=== PATIENT | male | born 1955 | race Caucasian/White ===

== ENCOUNTER 2020-06-05 10:18 | Outpatient (AMBR) | payer MEDICARE, MEDICAID, SELFPAY ==
--- NOTE | 2020-06-05 10:52 | PTNOTE_ITS ---
PT OP Initial Eval Patient Information Visit Reasons: power mobility device Medical Diagnosis: J44.9; R26.2 Treatment Dx #1: Abnormal Gait Treatment Dx #2: General Weakness Start of Care: 06/05/20 Date of Onset: 2 months ago Initial Assessment Subjective Pt is a 64 y/o male reports of having a stroke ~ 2 months ago affecting his right side. Pt's past med hx: CHF, back surgery, COPD, DM type II, and HTN. Since Stroke Pt has been limited with ambulation, chores, self care, bed mobility, transfer, and performing ADLs. 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 Pt will like a power w/c to improve overall independence Objective BUE AROM: all motions are up to 50% BUE MMTs: grossly 3-/5 BLE AROM: all motions are up to 50% BLE MMTs: grossly 3-/5 Gait Observation: use FWW with slow jennifer and step-to pattern. Assessment Pt demonstrate decrease overall mobility and strength leading to decline function and difficulty with ADLs/ambulation. Pt will benefit from a power w/c to help improve independence, prevent falls, and conserve energy. Short Term and Records Assistant Goals 1) Eval and D/C 2) Recommend power w/c Treatment Plan Eval and D/C Frequency and Duration 1x Certification Dates: 06/05/20 to 09/05/20 Office Procedures PT Procedures PT Date of Service: 06/05/20 OP PT Eval Mod Complex 30 minutes: Yes
== END 2020-06-05 11:49 | disposition home or self-care (01) ==
LOC: HODPTST 10:18
PROVIDERS: PCP Nurse Practitioner; Referring Provider Nurse Practitioner; Visit Provider Nurse Practitioner
DX: G45.9 Transient cerebral ischemic attack, unspecified (principal); R26.0 Ataxic gait; J44.9 Chronic obstructive pulmonary disease, unspecified; R26.2 Difficulty in walking, not elsewhere classified; E11.40 Type 2 diabetes mellitus with diabetic neuropathy, unspecified; M54.42 Lumbago with sciatica, left side; M54.41 Lumbago with sciatica, right side; R53.1 Weakness; I11.0 Hypertensive heart disease with heart failure; I50.9 Heart failure, unspecified
CPT/HCPCS: 97162